=== PATIENT | male | born 1980 | race Caucasian/White ===

== ENCOUNTER 2022-11-24 15:14 | Emergency (ER) | payer BC ==
[~2022-11-24] VITALS: Ht 182.9 cm; Wt 104.5 kg
[2022-11-24 15:27] VITALS: BP 123/78; TEMP 97.9
[2022-11-24 16:37] VITALS: PULSE 90
== END 2022-11-24 16:38 | disposition home or self-care (01) ==
LOC: COL.ER 15:14
DX: S01.311A Laceration without foreign body of right ear, initial encounter (principal); Z23 Encounter for immunization; Z28.310 Unvaccinated for COVID-19; W26.8XXA Contact with other sharp object(s), not elsewhere classified, initial encounter